=== PATIENT | female | born 1970 | race Caucasian/White ===

== ENCOUNTER 2017-04-06 16:21 | Emergency (ER) | payer OTHER ==
[2017-04-06 17:05] LABS: HEMOGLOBIN 13.8 gm/dl (12.3-15.3); RED BLOOD COUNT 4.53 M/UL (4.00-5.10); WHITE BLOOD COUNT 10.8 K/UL (4.5-11.0)
[2017-04-06 17:25] LABS: BUN/CREATININE RATIO 25 (0-10)
== END 2017-04-06 19:25 | disposition home or self-care (01) ==
LOC: ER1 16:21
PROVIDERS: Specialist/Technologist Athletic Trainer
DX: R11.0 Nausea (principal); E86.0 Dehydration; R31.9 Hematuria, unspecified; Z79.3 Long term (current) use of hormonal contraceptives
CPT/HCPCS: 36415; 71010; 80053; 81001; 82550; 82553; 83874; 84484; 84703; 85025; 93005; 96361; 96374; 99284; J2405